=== PATIENT | male | born 1990 | race Caucasian/White ===

== ENCOUNTER 2019-09-15 08:56 | Emergency (ER) | payer OTHER ==
[~2019-09-15] VITALS: Ht 182.9 cm; Wt 96.3 kg
[2019-09-15] MEDS ORDERED: IV NORMAL SALINE 1,000ML 1,000 ML IV ONE (09:00)
--- NOTE | 2019-09-15 09:23 | PHYS DOC ---
Past History Past Medical History: Seizure Additional Past Medical Histor: Mental retardation/brain injury Past Surgical History: No Surgical History Smoking: Cigarettes Alcohol Use: None Drug Use: None Adult General Chief Complaint Chief Complaint: SEIZURE HPI HPI A 29-year-old male presents by EMS after seen "leaning against a wall and then shaking" just prior to arrival. History of seizure and is on Keppra. Patient was taking his Keppra having a seizure for several months. Patient is able to answer questions and follow commands but slow to respond. Hx of brain injury. He denies any lightheadedness, dizziness, chest pain, and recent sickness. EMS reports IV drug abuse but patient denies in the emergency department. He denies loss of consciousness, focal weakness, numbness/tingling, or other trauma. He remembers leaning against wall prior to having a seizure. Patient reports he does not like hospitals and wants to go. Review of Systems Review of Systems Constitutional: Denies fever or chills Eyes: Denies redness or eye pain HENT: Denies nasal congestion or sore throat Respiratory: Denies cough or shortness of breath Cardiovascular: Denies chest pain or palpitations GI: Denies abdominal pain, nausea, or vomiting : Denies dysuria or hematuria Musculoskeletal: Denies back pain or joint pain Integument: Denies rash or skin lesions Neurologic: Denies headache, focal weakness or sensory changes; reports seizure like activity Complete systems were reviewed and found to be within normal limits, except as documented in this note. Current Medications Current Medications Current Medications Medications (Trade) Dose Ordered Sig/Hari Start Time Stop Time Status Last Admin Dose Admin Sodium Chloride 1,000 ml @ 1,000 mls/hr 1X ONCE 09/15/19 09:00 09/15/19 09:59 Allergies Allergies Allergies Coded Allergies Type Severity Reaction Last Updated Verified No Known Drug Allergies 09/15/19 No Physical Exam Physical Exam Constitutional: Well developed, well nourished, no acute distress, non-toxic appearance HENT: Normocephalic, atraumatic, oropharynx moist Eyes: PERRL, EOMI, conjunctiva normal, no discharge, no nystagmus Neck: Normal range of motion, no tenderness, supple Cardiovascular: Heart rate normal, regular rhythm Lungs & Thorax: Bilateral breath sounds clear to auscultation, no wheezing Abdomen: Soft, no tenderness Skin: Warm, dry, no erythema, no rash Back: No tenderness, no CVA tenderness Extremities: No tenderness, ROM intact, no edema Neurologic: Slow to answer questions and follow commands able to. Oriented to self and place. No focal weakness or sensory deficits. Psychologic: Affect normal, judgement normal Current Patient Data Vital Signs Vital Signs Date Time Temp Pulse Resp B/P (MAP) Pulse Ox O2 Delivery O2 Flow Rate FiO2 09/15/19 09:02 98.6 94 18 143/83 (103) 95 Room Air EKG EKG [] Radiology/Procedures Radiology/Procedures PROCEDURE: CT HEAD WO CONTRAST CT HEAD WO CONTRAST History: Seizure Comparison: None. Technique: Noncontrast CT imaging was performed of the head. Exposure: One or more of the following individualized dose reduction techniques were utilized for this examination: 1. Automated exposure control 2. Adjustment of the mA and/or kV according to patient size 3. Use of iterative reconstruction technique. Findings: There is motion degradation, decreased sensitivity for detection of more subtle subarachnoid hemorrhage. No acute hyperdense parenchymal hemorrhage is identified. There is no midline shift or intra-axial mass effect. Leroy-white differentiation of the major vascular territories is maintained. Ventricular size is within normal limits. There are a couple of small foci of nonspecific calcification along the anterior falx. Impression: 1. Exam is degraded by motion which decreases sensitivity for detection of more subtle subarachnoid hemorrhage. Otherwise no other convincing acute intracranial abnormality is identified. Electronically signed by: Gama Villanueva MD (09/15/2019 9:27 AM) [id number] Course & Med Decision Making Course & Med Decision Making Pertinent Labs and Imaging studies reviewed. (See chart for details) Patient presents with history of present illness and physical exam consistent for breakthrough seizure. Patient currently neurologically back at baseline. Patient does have a reported history of brain injury which is from . Patient appears to be at his baseline. Labs obtained and posted to chart. Lactic acid elevated consistent for breakthrough seizure. Patient offered IVF which he declined. CT head without acute process. Patient requesting to go home and fe els back at baseline. Patient stable for discharge with outpatient follow-up with PCP/neurologist. Advised to increased fluid hydration at home. Discussed findings and plan with patient, who acknowledges understanding and agreement. Dragon Disclaimer Dragon Disclaimer This electronic medical record was generated, in whole or in part, using a voice recognition dictation system. Departure Departure: Impression: Primary Impression: Breakthrough seizure Disposition: 01 HOME, SELF-CARE Condition: STABLE Referrals: SIMI GRAJEDA MD (PCP) Patient Instructions: Seizure, Adult, [id number] Additional Instructions: Please follow closely with your doctor and/or Neurologist. MAYUR HEART DO Sep 15, 2019 09:22
--- NOTE | 2019-09-15 09:29 | RAD ---
CT HEAD WO CONTRAST History: Seizure Comparison: None. Technique: Noncontrast CT imaging was performed of the head. Exposure: One or more of the following individualized dose reduction techniques were utilized for this examination: 1. Automated exposure control 2. Adjustment of the mA and/or kV according to patient size 3. Use of iterative reconstruction technique. Findings: There is motion degradation, decreased sensitivity for detection of more subtle subarachnoid hemorrhage. No acute hyperdense parenchymal hemorrhage is identified. There is no midline shift or intra-axial mass effect. Leroy-white differentiation of the major vascular territories is maintained. Ventricular size is within normal limits. There are a couple of small foci of nonspecific calcification along the anterior falx. Impression: 1. Exam is degraded by motion which decreases sensitivity for detection of more subtle subarachnoid hemorrhage. Otherwise no other convincing acute intracranial abnormality is identified. Electronically signed by: Gama Villanueva MD (09/15/2019 9:27 AM) [id number]
[2019-09-15 09:41] LABS: BASO % 1 % (0-3); EOS # 0.1 x10^3/uL (0.0-0.7); EOS % 2 % (0-3); HEMATOCRIT 48.5 % (39.0-53.0); HEMOGLOBIN 16.4 g/dL (13.0-17.5); LYMPH # 1.7 x10^3/uL (1.0-4.8); LYMPH % 28 % (24-48); MEAN CORPUSCULAR HEMOGLOBIN 33 pg (25-35); MEAN CORPUSCULAR HGB CONC 34 g/dL (31-37); MEAN CORPUSCULAR VOLUME 96 fL (79-100); MONO # 0.6 x10^3/uL (0.0-1.1); MONO % 10 % (0-9); NEUT # 3.5 x10^3uL (1.8-7.7); NEUT % 59 % (31-73); PLATELET COUNT 280 x10^3/uL (140-400); RED BLOOD COUNT 5.04 x10^6/uL (4.30-5.70); RED CELL DISTRIBUTION WIDTH 12.9 % (11.5-14.5); WHITE BLOOD COUNT 5.9 x10^3/uL (4.0-11.0)
[2019-09-15 09:45] LABS: CALCIUM 9.3 mg/dL (8.5-10.1); CREATININE 0.9 mg/dL (0.7-1.3); GFR 99.8; POTASSIUM 3.6 mmol/L (3.5-5.1)
[2019-09-15 09:51] LABS: ALBUMIN 4.3 g/dL (3.4-5.0); ALBUMIN/GLOBULIN RATIO 1.2 (1.0-1.7); MAGNESIUM 2.3 mg/dL (1.8-2.4); TOTAL BILIRUBIN 0.3 mg/dL (0.2-1.0); TOTAL PROTEIN 7.9 g/dL (6.4-8.2)
[2019-09-15 10:05] VITALS: BP 132/75
== END 2019-09-15 10:15 | disposition home or self-care (01) ==
LOC: ER 08:56
DX: R56.9 Unspecified convulsions (principal); F17.210 Nicotine dependence, cigarettes, uncomplicated
CPT/HCPCS: 36415; 70450; 80053; 82550; 83605; 83735; 85025; 99285; G0480

== ENCOUNTER 2020-07-28 16:15 | Emergency (ER) | payer OTHER ==
[~2020-07-28] VITALS: Ht 182.9 cm; Wt 96.3 kg
[2020-07-28 16:17] VITALS: BP 128/97
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
== END 2020-07-28 16:43 | disposition home or self-care (01) ==
LOC: ER 16:15
DX: G40.909 Epilepsy, unspecified, not intractable, without status epilepticus (principal); Z87.820 Personal history of traumatic brain injury; F17.210 Nicotine dependence, cigarettes, uncomplicated
CPT/HCPCS: 99284

== ENCOUNTER 2020-08-02 03:48 | Emergency (ER) | payer OTHER ==
[~2020-08-02] VITALS: Ht 182.9 cm; Wt 96.3 kg
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
[2020-08-02] MEDS ORDERED: levETIRAcetam 500 MG TABLET PO ONE ×2 (04:13→04:30)
[2020-08-02] MEDS ORDERED: LORazepam 1 MG TABLET PO ONE (04:30)
[2020-08-02 04:32] VITALS: BP 142/86
== END 2020-08-02 04:32 | disposition home or self-care (01) ==
LOC: ER 03:48
DX: G40.909 Epilepsy, unspecified, not intractable, without status epilepticus (principal); F17.210 Nicotine dependence, cigarettes, uncomplicated; Z87.820 Personal history of traumatic brain injury
CPT/HCPCS: 99283

== ENCOUNTER 2020-09-13 09:26 | Emergency (ER) | payer OTHER ==
[~2020-09-13] VITALS: Ht 182.9 cm; Wt 96.3 kg
[2020-09-13 09:28] VITALS: BP 135/87
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
== END 2020-09-13 10:35 | disposition home or self-care (01) ==
LOC: ER 09:26
DX: G40.909 Epilepsy, unspecified, not intractable, without status epilepticus (principal); F17.210 Nicotine dependence, cigarettes, uncomplicated; Z88.0 Allergy status to penicillin
CPT/HCPCS: 99283

== ENCOUNTER 2021-07-26 02:02 | Emergency (ER) | payer OTHER ==
[~2021-07-26] VITALS: Ht 182.9 cm; Wt 82.3 kg
[2021-07-26] MEDS ORDERED: levETIRAcetam 500 MG TABLET PO SCH ×2 (02:29→09:00)
[2021-07-26] MEDS ORDERED: IV RINGERS SOLUTION,LACTATED 1,000 ML IV SCH (02:30)
[2021-07-26 03:31] LABS: BASO # 0.1 x10^3/uL (0.0-0.2); BASO % 1 % (0-3); EOS # 0.2 x10^3/uL (0.0-0.7); EOS % 4 % (0-3); HEMATOCRIT 44.8 % (39.0-53.0); HEMOGLOBIN 15.7 g/dL (13.0-17.5); LYMPH # 1.7 x10^3/uL (1.0-4.8); LYMPH % 32 % (24-48); MEAN CORPUSCULAR HEMOGLOBIN 33 pg (25-35); MEAN CORPUSCULAR HGB CONC 35 g/dL (31-37); MEAN CORPUSCULAR VOLUME 93 fL (79-100); MONO # 0.6 x10^3/uL (0.0-1.1); MONO % 10 % (0-9); NEUT # 2.9 x10^3uL (1.8-7.7); NEUT % 53 % (31-73); PLATELET COUNT 246 x10^3/uL (140-400); RED BLOOD COUNT 4.83 x10^6/uL (4.30-5.70); RED CELL DISTRIBUTION WIDTH 13.1 % (11.5-14.5); WHITE BLOOD COUNT 5.4 x10^3/uL (4.0-11.0)
[2021-07-26 03:40] LABS: BACTERIA,URINE 0 /HPF (0-FEW); BILIRUBIN,URINE NEG (NEG); CLARITY,URINE CLEAR; COLOR,URINE YELLOW; GLUCOSE,URINE NEG (NEG); NITRITE,URINE NEG (NEG); RBC,URINE 0 /HPF (0-2); SQUAMOUS EPITHELIAL CELL,UR FEW /LPF; UROBILINOGEN,URINE 0.2 mg/dL (0.2 mg/dL)
[2021-07-26 03:45] LABS: CREATININE 0.8 mg/dL (0.7-1.3); GFR 113.5; POTASSIUM 3.3 mmol/L (3.5-5.1)
[2021-07-26 03:45] LABS: BARBITURATES NEG (NEG); BENZODIAZEPINES NEG (NEG); CANNABINOIDS NEG (NEG); COCAINE NEG (NEG); METHADONE NEG (NEG); OPIATES NEG (NEG); PHENCYCLIDINE NEG (NEG)
[2021-07-26 03:48] LABS: AMPHETAMINE/METHAMPHETAMINE NEG (NEG)
[2021-07-26 03:52] LABS: ALBUMIN 4.3 g/dL (3.4-5.0); DIRECT BILIRUBIN 0.1 mg/dL (0.0-0.2); TOTAL BILIRUBIN 0.5 mg/dL (0.2-1.0); TOTAL PROTEIN 8.1 g/dL (6.4-8.2)
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
[2021-07-26] MEDS ORDERED: POTASSIUM CHLORIDE 20 MEQ TABLET.ER. PO ONE (04:15)
--- NOTE | 2021-07-26 04:31 | RAD ---
INDICATION: Reason: hx seizure, and recent concussion- / facial fx / Spl. Instructions: / History: COMPARISON: August 2019 TECHNIQUE: Axial CT images obtained through the head without intravenous contrast. One or more of the following individualized dose reduction techniques were utilized for this examinat ion: 1. Automated exposure control; 2. Adjustment of the mA and/or kV according to patient size; 3 . Use of iterative reconstruction technique. FINDINGS: No significant midline shift. No hydrocephalus. Region of low density is seen in the left greater than right basal frontal region. There is also some low density at the bilateral temporal region anteriorly. These are new findings co mpared to prior. Within the left basal frontal region there is a small focus of relatively higher density within the l ow density component measuring up to about a centimeter. Linear lucency at the left occipital and could be from a mildly displaced fracture. IMPRESSION: * Low-density region within the basal frontal and temporal region which could be seen with cerebral contusion. There is a small focus of relative higher density within the left frontal region at the a annette of lower density. This could be secondary to a small amount of associated blood products within t he contusion. This is a new finding when compared to August 2019. * Calvarium fracture is identified. Report called to the ER at 4:25 AM. Electronically signed by: Mina Lopez MD (07/26/2021 4:29 AM) [id number]
[2021-07-26 05:20] VITALS: BP 135/83
--- NOTE | 2021-07-26 06:29 | EKG ---
[address] [address] Test Date: 2021-07-26 Test Time: 03:14:24 Pat Name: HELADIO RESTREPO Department: Room: Gender: M [employer]: NIKI : 1990 Requested By: TASNEEM ZHOU Order Number: [id number] Reading MD: Measurements Intervals [place] Rate: 75 P: 54 VT: 164 QRS: 85 QRSD: 96 T: 12 QT: 332 QTc: 373 Interpretive Statements SINUS RHYTHM OTHERWISE NORMAL ECG RI6.02 No previous ECG available for comparison
== END 2021-07-26 05:35 | disposition home or self-care (01) ==
LOC: ER 02:02
DX: G40.909 Epilepsy, unspecified, not intractable, without status epilepticus (principal); E87.6 Hypokalemia; F17.210 Nicotine dependence, cigarettes, uncomplicated; Z88.0 Allergy status to penicillin
CPT/HCPCS: 36415; 70450; 80048; 80076; 80307; 81001; 82550; 83735; 83880; 84443; 85025; 93005; 96360; 99285; J7120

== ENCOUNTER 2021-07-31 13:17 | Emergency (ER) | payer OTHER ==
[~2021-07-31] VITALS: Ht 182.9 cm; Wt 82.3 kg
[2021-07-31] MEDS ORDERED: IV NORMAL SALINE 1,000ML 1,000 ML IV ONE (13:30)
[2021-07-31 13:54] LABS: BASO # 0.1 x10^3/uL (0.0-0.2); BASO % 1 % (0-3); EOS # 0.1 x10^3/uL (0.0-0.7); EOS % 2 % (0-3); HEMATOCRIT 45.7 % (39.0-53.0); HEMOGLOBIN 15.9 g/dL (13.0-17.5); LYMPH # 1.9 x10^3/uL (1.0-4.8); LYMPH % 34 % (24-48); MEAN CORPUSCULAR HEMOGLOBIN 32 pg (25-35); MEAN CORPUSCULAR HGB CONC 35 g/dL (31-37); MEAN CORPUSCULAR VOLUME 93 fL (79-100); MONO # 0.5 x10^3/uL (0.0-1.1); MONO % 9 % (0-9); NEUT # 3.1 x10^3uL (1.8-7.7); NEUT % 54 % (31-73); PLATELET COUNT 300 x10^3/uL (140-400); RED BLOOD COUNT 4.92 x10^6/uL (4.30-5.70); RED CELL DISTRIBUTION WIDTH 13.3 % (11.5-14.5); WHITE BLOOD COUNT 5.8 x10^3/uL (4.0-11.0)
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
[2021-07-31 14:05] LABS: ALBUMIN 4.4 g/dL (3.4-5.0); ALBUMIN/GLOBULIN RATIO 1.1 (1.0-1.7); CALCIUM 9.6 mg/dL (8.5-10.1); CREATININE 0.8 mg/dL (0.7-1.3); GFR 113.5; MAGNESIUM 2.4 mg/dL (1.8-2.4); POTASSIUM 4.3 mmol/L (3.5-5.1); TOTAL BILIRUBIN 0.3 mg/dL (0.2-1.0); TOTAL PROTEIN 8.3 g/dL (6.4-8.2)
[2021-07-31 14:22] LABS: BILIRUBIN,URINE NEG (NEG); CLARITY,URINE CLOUDY; COLOR,URINE YELLOW; GLUCOSE,URINE NEG (NEG); NITRITE,URINE NEG (NEG); UROBILINOGEN,URINE 0.2 mg/dL (0.2 mg/dL)
[2021-07-31 14:23] LABS: AMORPHOUS SEDIMENT,UR PRESENT /HPF; BACTERIA,URINE 0 /HPF (0-FEW); SPERM,URINE PRESENT /HPF
--- NOTE | 2021-07-31 14:25 | RAD ---
CT head without contrast dated 07/31/2021 2:17 PM Comparison: 07/26/2021 CLINICAL INDICATION: Seizures TECHNIQUE: Contiguous axial imaging of the head was performed from skull base to vertex. One or more of the following individualized dose reduction techniques were utilized for this examinat ion: 1. Automated exposure control 2. Adjustment of the mA and/or kV according to patient size 3. Use of iterative reconstruction technique. FINDINGS: Ventricles and sulci are within normal limits for age. No midline shift or mass effect. Focal zone of low density in the anterior left temporal lobe and inferior left frontal lobe is unchanged from prio r study. There are some heterogeneous areas of higher density in the region. There is also a low-dens ity focus within the anterior temporal lobe on the right, unchanged. Posterior fossa and brainstem un remarkable. No acute hemorrhage or extra-axial collection. Mild mucosal thickening of the bilateral ethmoid air cells and right maxillary sinus. The mastoid air cells are clear. There is a parietal occipital skull fracture on the left with cortical step-off, un changed from prior exam but new from the 09/15/2019 study IMPRESSION: 1. Bifrontal and bitemporal heterogeneous low-density, similar to most recent exam. This is likely re lated to prior trauma and subacute to remote hemorrhagic contusions. Correlate clinically. 2. 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 3. No new abnormality. Electronically signed by: Tony Corral MD (07/31/2021 2:23 PM) [facility]
[2021-07-31 14:48] VITALS: BP 135/88
== END 2021-07-31 15:08 | disposition home or self-care (01) ==
LOC: ER 13:17
DX: G40.909 Epilepsy, unspecified, not intractable, without status epilepticus (principal); E78.5 Hyperlipidemia, unspecified; F17.210 Nicotine dependence, cigarettes, uncomplicated; Z88.0 Allergy status to penicillin; S06.339D Contusion and laceration of cerebrum, unspecified, with loss of consciousness of unspecified duration, subsequent encounter; X58.XXXD Exposure to other specified factors, subsequent encounter
CPT/HCPCS: 36415; 70450; 80053; 81001; 82550; 83605; 83735; 85025; 87086; 96361; 96374; 99284; J2060; J7030

== ENCOUNTER 2021-09-02 15:21 | Emergency (ER) | payer OTHER ==
[~2021-09-02] VITALS: Ht 182.9 cm; Wt 82.3 kg
[2021-09-02 15:38] VITALS: BP 135/88
--- NOTE | 2021-09-02 15:42 | PHYS DOC ---
Past History Past Medical History: High Cholesterol, Seizure Additional Past Medical Histor: Mental retardation/brain injury Past Surgical History: No Surgical History Smoking: Cigarettes Alcohol Use: None Drug Use: None Adult General Chief Complaint Chief Complaint: FINGER INJURY HPI HPI Patient is a 30-year-old male presenting with friend via POV for right hand injury. Patient was reportedly helping friend with yard work when he accidentally caught his right ring finger between a piece of wood and chain saw that he was previously operating. He suffered an immediate injury to the tip of his finger prompting him to be transported to our facility for evaluation. Friend admits that patient has a developmental delay but otherwise has no obvious medical issues and takes no medications on a daily basis. Patient reports there is pain to the distal aspect of his right ring finger but otherwise has full movement with no changes in motor or sensory or neuro function Review of Systems Review of Systems Fourteen body systems of review of systems have been reviewed. See HPI for pertinent positives and negative responses, other clemente all other systems are negative, non-pertinent or non-contributory Allergies Allergies Allergies Coded Allergies Type Severity Reaction Last Updated Verified Penicillins Allergy Unknown 07/26/21 Yes Physical Exam Physical Exam Constitutional: Well developed, well nourished, no acute distress, non-toxic appearance. HENT: Normocephalic, atraumatic, bilateral external ears normal, oropharynx moist, no oral exudates, nose normal. Eyes: PERRLA, EOMI, conjunctiva normal, no discharge. Neck: Normal range of motion, no tenderness, supple, no stridor. Cardiovascular: Heart rate regular per monitor Lungs & Thorax: No respiratory distress or accessory muscle use, bilateral chest rise Abdomen: Abdomen soft, non-tender, bowel sounds present in all quadrants, no guarding or rebound, nonacute abdomen. Skin: Warm, dry, no erythema, no rash. Back: No tenderness, no CVA tenderness. Extremities: No tenderness, no cyanosis, no clubbing, ROM intact, no edema. Patient has obvious trauma to distal aspect of right ring finger with 5 mm laceration present at proximal base of nailbed with near complete detachment of nail with open fracture present. 2+ radial pulses b/l Neurologic: Alert and oriented X 3, medial radial and ulnar nerves intact, normal motor & sensory function, no focal deficits noted. Psychologic: Affect normal, judgement normal, mood normal. Current Patient Data Vital Signs Vital Signs Date Time Temp Pulse Resp B/P (MAP) Pulse Ox O2 Delivery O2 Flow Rate FiO2 09/02/21 15:38 97.8 87 18 135/88 (104) 97 Room Air Vital Signs Date Time Temp Pulse Resp B/P (MAP) Pulse Ox O2 Delivery O2 Flow Rate FiO2 09/02/21 15:38 97.8 87 18 135/88 (104) 97 Room Air EKG EKG [] Radiology/Procedures Radiology/Procedures 3 views right hand 09/02/2021 3:50 PM Indication: Reason: SMASHED FINGER Comparison: None Findings: There is a comminuted fracture of the fourth right distal phalangeal tuft, with ulnar displacement of the majority of the tuft. Mild palmar step-off is also noted. Overlying soft tissue irregularity is seen, likely involving the nailbed. Correlate with clinical evidence of an open fracture. No dislocation is seen. No other fractures are identified. No radiopaque foreign bodies are identified. IMPRESSION: Fourth distal phalangeal tuft fracture as described Electronically signed by: Ignacio Keller MD (09/02/2021 3:56 PM) [id number] Heart Score C/O Chest Pain: No Risk Factors: Risk Factors: DM, Current or recent (<one month) smoker, HTN, HLP, family history of CAD, obesity. Risk Scores: Risk Factors: DM, Current or recent (<one month) smoker, HTN, HLP, family history of CAD, obesity. Course & Med Decision Making Course & Med Decision Making ABCs unremarkable HPI physical exam and comprehensive ER work-up obtained concerning for open tuft fracture of right distal fourth digit Patient's wound irrigated extensively, Tdap updated given last tetanus unknown. I reviewed case with on-call hand surgeon at [facility] and recommendations were made for suture repair while in ER if indicated and close outpatient follow-up following day I disclosed entirety of ER work-up, findings, and recommendations for need of close outpatient follow-up with hand surgeon with patient and friend at bedside with good understanding by both. Nonetheless, there is an air when electronically prescribing antibiotics to pharmacy by myself on date of service I contacted patient's father on 09/04/2021 and followed up with him regarding care of patient. Patient was seen at [facility] plastic surgeon office yesterday and cared for. Still not on antibiotics. I subsequently called in Keflex for him to take. Patient has close outpatient follow-up tomorrow again with [facility] facility Cleo Disclaimer Cleo Disclaimer This electronic medical record was generated, in whole or in part, using a voice recognition dictation system. Departure Departure: Impression: Primary Impression: Open fracture of tuft of distal phalanx of finger Additional Impression: Seizure disorder Disposition: HOME / SELF CARE / HOMELESS Condition: STABLE Referrals: JUAN CORONA MD (PCP) Additional Instructions: As discussed prior to ER departure, you were diagnosed with a comminuted fracture of the right ring finger at distal phalangeal tuft with ulnar d isplacement. I disclosed your findings and reviewed obtained radiographs with plastic surgeon physician at [facility] who recommended need for close outpatient follow-up tomorrow at 11:15 AM at their plastic surgery office at [address] [place] [address], [place] [address]. If needed, their office phone number is [phone]. Your finger was wrapped with a nonstick dressing and s plint was placed. After extensive irrigation and cleaning of your finger joint decision was made to defer any suturing in favor of formal evaluation tomorrow with plastic surgery office. Please continue to take Tylenol and/or ibuprofen as needed for pain. If any concerning signs or symptoms present prior to outpatient follow-up tomorrow please do not hesitate to come back for repeat evaluation. It was a pleasure to take care of you and I wish you the best going forward Scripts Cephalexin (CEPHALEXIN) 500 Mg Tablet 1 TAB PO QID for cellulitis for 7 Days, #28 TAB Prov: MAGALY GIVENS DO 09/04/21 Problem Qualifiers MAGALY GIVENS DO Sep 02, 2021 15:42
--- NOTE | 2021-09-02 15:58 | RAD ---
3 views right hand 09/02/2021 3:50 PM Indication: Reason: SMASHED FINGER Comparison: None Findings: There is a comminuted fracture of the fourth right distal phalangeal tuft, with ulnar displ acement of the majority of the tuft. Mild palmar step-off is also noted. Overlying soft tissue irregu larity is seen, likely involving the nailbed. Correlate with clinical evidence of an open fracture. N o dislocation is seen. No other fractures are identified. No radiopaque foreign bodies are identified . IMPRESSION: Fourth distal phalangeal tuft fracture as described Electronically signed by: Ignacio Keller MD (09/02/2021 3:56 PM) [id number]
[2021-09-04] MEDS ORDERED: CEPH500T PO (06:59)
== END 2021-09-02 17:17 | disposition home or self-care (01) ==
LOC: ER 15:21
DX: S62.634B Displaced fracture of distal phalanx of right ring finger, initial encounter for open fracture (principal); E78.5 Hyperlipidemia, unspecified; F17.210 Nicotine dependence, cigarettes, uncomplicated; G40.909 Epilepsy, unspecified, not intractable, without status epilepticus; Z88.0 Allergy status to penicillin; W23.0XXA Caught, crushed, jammed, or pinched between moving objects, initial encounter; Y93.89 Activity, other specified; Y92.89 Other specified places as the place of occurrence of the external cause; Y99.8 Other external cause status
CPT/HCPCS: 73130; 99283-25